=== PATIENT | male | born 1995 | race African-American/Black ===

== ENCOUNTER 2024-01-14 10:47 | Emergency (ER) | payer SELFPAY ==
[2024-01-14 10:56] VITALS: BP 109/72; PULSE 98; RESP 17; TEMP 98.5; BMI 23.0
[2024-01-14] MEDS ORDERED: ASPIRIN 81 MG CHEWABLE TABLETS ONE (12:16)
[2024-01-14] MEDS: ASPIRIN 81 MG CHEWABLE TABLETS PO ONE (12:17)
[2024-01-14 12:18] LABS: BASO % 0.2 % (0-2.0); EOS % 0.1 % (0-4.5); HEMATOCRIT 47.1 % (35.4-49); HEMOGLOBIN 15.7 GM/dL (11.7-16.9); LYMPH % 14.6 % (8-40); MCH 29.9 pg (25.7-33.7); MCHC 33.4 g/dl (32.0-35.9); MEAN CELL VOLUME 89.6 fl (80-96); MEAN PLT VOLUME 8.4 fl (7.5-11.1); MONO % 5.8 % (3.8-10.2); NEUT % 79.3 % (42.8-82.8); PLATELET COUNT 283 10^3/uL (134-434); RBC 5.26 M/mm3 (4.00-5.60); RDW 13.3 % (11.9-15.9); WHITE BLOOD COUNT 11.7 K/mm3 (4.0-10.0)
[2024-01-14 12:25] LABS: INR 1.07 (0.83-1.09); PROTHROMBIN TIME (PATIENT) 12.1 SEC (9.7-13.0)
[2024-01-14 12:27] LABS: ACTIVATED PTT 30.2 SECONDS (25.2-36.5)
[2024-01-14 12:44] LABS: CHLORIDE 103 mmol/L (98-107); POTASSIUM 3.6 mmol/L (3.5-5.1); SODIUM 134 mmol/L (136-145)
[2024-01-14 12:46] LABS: ANION GAP 2 mmol/L (4-13); BLOOD UREA NITROGEN 7.6 mg/dL (7-18); CALCIUM 9.8 mg/dL (8.5-10.1); CO2 29 mmol/L (21-32)
[2024-01-14 12:47] LABS: ALBUMIN 4.6 g/dl (3.4-5.0); GLUCOSE,RANDOM 105 mg/dL (74-106); MAGNESIUM 2.2 mg/dL (1.8-2.4)
[2024-01-14 12:49] LABS: CREATININE 1.2 mg/dL (0.55-1.3)
[2024-01-14 12:50] LABS: SGOT/AST 23 U/L (15-37); SGPT/ALT 24 U/L (13-61)
[2024-01-14 12:51] LABS: BILIRUBIN,TOTAL 2.5 mg/dL (0.2-1); TOT PROT 7.7 g/dl (6.4-8.2)
[2024-01-14 12:52] LABS: ALK PHOS 56 U/L (45-117)
[2024-01-14 13:39] LABS: HIV INTERPRETATION NEGATIVE (NEGATIVE)
== END 2024-01-14 14:46 | disposition home or self-care (01) ==
LOC: JER 10:47
DX: R07.2 Precordial pain (principal); Z11.3 Encounter for screening for infections with a predominantly sexual mode of transmission
CPT/HCPCS: 36415; 71046-TC-FY; 80053; 82550; 82553; 83735; 84484; 85025; 85610; 85730; 87389; 87491; 87591; 93005; 93010; 99285-25